=== PATIENT | female | born 1980 | race Caucasian/White ===

== ENCOUNTER 2022-10-01 10:00 | Outpatient (CLI) | payer SELFPAY | END 2022-10-01 10:01 | disposition home or self-care (01) | LOC: NFLDREF 10:04 | PROVIDERS: PCP Internal Medicine; Visit Provider Internal Medicine | DX: Z98.84 Bariatric surgery status (principal) | CPT/HCPCS: 80053; 80061; 82306; 82525; 82607; 82728; 82747; 83735; 84443; 84446; 84590; 84597; 84630 ==

== ENCOUNTER 2022-10-08 13:19 | Outpatient (CLI) | payer OTHER, SELFPAY ==
[2022-10-08 16:37] LABS: Chlamydia DNA Amplified* NOT DETECTED (No Detected); GC DNA Amplified* NOT DETECTED (No Detected)
== END 2022-10-08 13:20 | disposition home or self-care (01) ==
PROVIDERS: PCP Internal Medicine; Visit Provider Internal Medicine
DX: Z00.00 Encounter for general adult medical examination without abnormal findings (principal); E66.01 Morbid (severe) obesity due to excess calories; Z11.3 Encounter for screening for infections with a predominantly sexual mode of transmission
CPT/HCPCS: 0353U; 86592; 86703; 86803

== ENCOUNTER 2023-01-10 07:40 | Outpatient (CLI) | payer OTHER, SELFPAY ==
--- NOTE | 2023-01-10 07:45 | CRLHL7_ITS ---
For Patients: As a result of the Century Cures Act, medical imaging exams and procedure reports are released immediately into your electronic medical record. You may view this report before your referring provider. If you have questions, please contact your health care provider. BILATERAL SCREENING MAMMOGRAM WITH COMPUTER-AIDED DETECTION AND TOMOSYNTHESIS TECHNIQUE: CC and MLO views were obtained. These mammographic images have been obtained using full-field digital technique. These mammographic images were interpreted with the benefit of computer-aided detection. Breast tomosynthesis was used in this interpretation. COMPARISON FILM: 03/04/19. FINDINGS: There are scattered areas of fibroglandular density. IMPRESSION: There is no radiographic evidence for malignancy. ASSESSMENT: BI-RADS Category 1: Negative RECOMMENDATION: Routine screening mammogram in 1 year. A lay language report of this examination will be provided to the patient. CHESTER ABARCA M.D. Diagnostic Radiologist [email or web address] Transcribed: 01/15/2023, 2:[address]/Dictated by: Chester Abarca MD @ 01/15/2023 8:47:00 AM (Electronically Signed)
== END 2023-01-10 07:41 | disposition home or self-care (01) ==
PROVIDERS: PCP Internal Medicine; Visit Provider Internal Medicine
DX: Z12.31 Encounter for screening mammogram for malignant neoplasm of breast (principal)
CPT/HCPCS: 77063; 77067

== ENCOUNTER 2023-03-13 07:35 | Outpatient (CLI) | payer OTHER, SELFPAY | END 2023-03-13 07:36 | disposition home or self-care (01) | LOC: NFLDREF 03-19 09:20 | PROVIDERS: PCP Internal Medicine; Referring Provider Internal Medicine; Visit Provider Internal Medicine | DX: Z83.79 Family history of other diseases of the digestive system (principal) | CPT/HCPCS: 83516 ==